=== PATIENT | male | born 1965 | race Caucasian/White ===

== ENCOUNTER 2018-08-16 07:10 | Day surgery (SDC) | payer BC ==
[2018-08-16 07:42] VITALS: BMI 38.4
[2018-08-16] MEDS ORDERED: Lactated Ringer's 500 ML IV ONE ×2 (09:21)
[2018-08-16] MEDS ORDERED: Propofol 10 mg/ml Inj (20 ML) ONE ×2 (09:23)
[2018-08-16 11:06] VITALS: TEMP 98; O2SAT 100
[2018-08-16 11:12] VITALS: BP 138/80; PULSE 88; RESP 20
== END 2018-08-16 11:10 | disposition home or self-care (01) ==
LOC: C.ENDO 07:10
PROVIDERS: ATTEND Internal Medicine Gastroenterology
DX: D12.5 Benign neoplasm of sigmoid colon (principal); K64.0 First degree hemorrhoids
CPT/HCPCS: 45380; 82948; 88305; J2704; J7120